=== PATIENT | female | born 1970 | race Caucasian/White ===

== ENCOUNTER 2020-08-31 12:05 | Emergency (ER) | payer BC ==
[~2020-08-31] VITALS: Ht 152.4 cm; Wt 47.2 kg
--- NOTE | 2020-08-31 12:18 | NUR ---
BIBS WITH HER DAUGHTER FROM HOME TO ER BED 7. AAOX4. NOT IN RESP DISTRESS, BREATHING EVEN AND UNLABORED. AMBULATORY. CAME IN FOR NOSE PAIN THE THE BRIDGE OF HER NOSE S/P PHOTO FRAME FELL ON IT. PT REPORT BEING IN BED TRIED TO REACH SOMETHING FROM THE SHELF WHE THE FRAME FELL ON HER FACE. PT REPROTS ICING THE NOSE LAST NIGHT AND THIS MORNING. NO NOTED DEFORMITY OTHER THE REDNESS, SLIGHT SWELLING AND SUPERFICIAL ABRASSION. AWAITING MD FOR EVAL.
--- NOTE | 2020-08-31 13:07 | NUR ---
Patient discharged to home in stable condition. Written and verbal after care instructions given. Patient verbalizes understanding of instruction. Pt ambulatory with a steady gait
[2020-08-31 13:15] VITALS: BP 114/64
== END 2020-08-31 13:16 | disposition home or self-care (01) ==
LOC: ER 12:15
DX: S00.33XA Contusion of nose, initial encounter (principal); W20.8XXA Other cause of strike by thrown, projected or falling object, initial encounter; Y93.89 Activity, other specified; Y92.89 Other specified places as the place of occurrence of the external cause; Y99.8 Other external cause status

== ENCOUNTER 2023-01-20 23:46 | Emergency (ER) | payer BC, OTHER ==
[~2023-01-20] VITALS: Ht 152.4 cm; Wt 49.9 kg
[2023-01-21] MEDS ORDERED: TDAP [DIPH/PERTUSSIS/TET] 0.5 ML VIAL IM ONE ×2 (00:14→00:30)
[2023-01-21 00:31] VITALS: BP 128/70; TEMP 98.2; O2SAT 99
== END 2023-01-21 00:32 | disposition home or self-care (01) ==
LOC: ER 23:52
DX: S61.216A Laceration without foreign body of right little finger without damage to nail, initial encounter (principal); W45.8XXA Other foreign body or object entering through skin, initial encounter; Y93.89 Activity, other specified; Y92.89 Other specified places as the place of occurrence of the external cause; Y99.8 Other external cause status
CPT/HCPCS: 90715

== ENCOUNTER 2024-01-18 10:39 | Emergency (ER) | payer OTHER ==
[~2024-01-18] VITALS: Ht 152.4 cm; Wt 49.4 kg
[2024-01-18 11:45] VITALS: BP 110/61; TEMP 98; O2SAT 98
== END 2024-01-18 11:46 | disposition home or self-care (01) ==
LOC: ER 10:51
DX: S61.210A Laceration without foreign body of right index finger without damage to nail, initial encounter (principal); W26.8XXA Contact with other sharp object(s), not elsewhere classified, initial encounter; Y93.89 Activity, other specified; Y92.098 Other place in other non-institutional residence as the place of occurrence of the external cause; Y99.8 Other external cause status
CPT/HCPCS: 99282; 12001; A6403